=== PATIENT | male | born 1955 | race Caucasian/White ===

== ENCOUNTER 2016-03-31 19:16 | Inpatient (IN) | payer OTHER ==
[~2016-03-31] VITALS: Ht 180.3 cm; Wt 148.2 kg
[2016-03-31 19:56] LABS: BASOPHILS 0.1 % (0.0-2.0); EOSINOPHILS 0.5 % (0-7); HEMATOCRIT 29.7 % (42.0-54.0); HEMOGLOBIN 10.3 g/dL (13.5-17.5); IMMATURE GRANULOCYTES 1.4 % (0-5); LYMPHOCYTES 7.3 % (15-50); MCH 30.7 pg (26.0-34.0); MCHC 34.7 g/dL (31.0-37.0); MCV 88.4 fL (80.0-100.0); MEAN PLATELET VOLUME 8.3 fL (7.4-10.4); MONOCYTES 6.1 % (2-11); NEUTROPHILS 84.6 % (40-80); PLATELET COUNT 200 10x3/uL (130-400); RBC 3.36 10x6/uL (4.20-6.10); RDW 14.4 % (11.5-14.5); WBC 16.7 10x3/uL (4.8-10.8)
[2016-03-31 20:08] LABS: APTT 32.4 SECONDS (22.8-39.4); INR 1.33 (0.85-1.17); PROTIME 16.4 SECONDS (11.6-15.0)
[2016-03-31 20:14] LABS: ALBUMIN 2.1 g/dL (3.4-5.0); ANION GAP 16.7 mmol/L (8-16); BILIRUBIN - TOTAL 0.84 mg/dL (0.2-1.3); CALCIUM 9.5 mg/dL (8.5-10.1); CARBON DIOXIDE 22.3 mmol/L (21.0-32.0); CREATININE - SERUM 2.7 mg/dL (0.6-1.3); PROTEIN - SERUM 7.2 g/dL (6.4-8.2)
[2016-03-31 20:19] LABS: APPEARANCE CLOUDY (CLEAR); BILIRUBIN NEGATIVE (NEGATIVE); COLOR YELLOW (YELLOW); GLUCOSE NEGATIVE (NEGATIVE); KETONE NEGATIVE (NEGATIVE); LEUKOCYTE ESTERASE 2+ (NEGATIVE); NITRITE POSITIVE (NEGATIVE); PROTEIN 1+ mg/dL (NEGATIVE); SPECIFIC GRAVITY 1.015 (1.005-1.020); UROBILINOGEN NORMAL (NORMAL)
[2016-03-31 20:21] LABS: EPITHELIAL CELLS 0-5 /hpf (0-5)
[2016-03-31 20:22] LABS: BACTERIA MODERATE /hpf (NONE SEEN)
--- NOTE | 2016-04-01 01:14 | NUR ---
3850)REC'D FROM ER VIA STRETCHER.ALERT ORIENTED X3.CHIEF COMPLAINT GENERALIZED WEAKNESS AND ACHING ALL OVER X2 WEEKS.WILL CONTINUE TO MONITOR FOR ANY OTHER COMPLAINTS AND FOLLOW CURRENT PLAN OF CARE.
[2016-04-01] MEDS ORDERED: BAYER CHEWABLE81 MG PO (02:42)
[2016-04-01] MEDS ORDERED: PRINIVIL20 MG PO (02:43)
[2016-04-01] MEDS ORDERED: CELEXA20 MG PO (02:55)
[2016-04-01] MEDS ORDERED: BUPROPION XL300 MG PO (02:56)
[2016-04-01] MEDS ORDERED: NEXIUM40 MG PO (02:57)
[2016-04-01] MEDS ORDERED: NAPROSYN500 MG PO (02:59)
[2016-04-01] MEDS ORDERED: MECLIZINE HCL25 MG PO (03:00)
[2016-04-01] MEDS ORDERED: ULTRAM50 MG PO (03:05)
[2016-04-01] MEDS ORDERED: ZOCOR5 MG (03:10)
[2016-04-01] MEDS ORDERED: FLOMAX0.4 MG PO (03:12)
[2016-04-01] MEDS ORDERED: TRAVATAN Z2.5 ML EACH EYE (03:21)
[2016-04-01] MEDS ORDERED: COMBIGAN OPHT DR5 ML (03:27)
[2016-04-01] MEDS ORDERED: FISH OIL 1,0001 CA1 (04:01)
[2016-04-01] MEDS ORDERED: MILK THISTLE140 MG (04:05)
[2016-04-01] MEDS ORDERED: VITAMIN C250 MG (04:06)
[2016-04-01] MEDS ORDERED: VITAMIN E400 UNI2 (04:07)
[2016-04-01] MEDS ORDERED: GLUCOSAMINE & C1 CAP (04:07)
[2016-04-01] MEDS ORDERED: VITAMIN B COMPL1 TAB (04:17)
[2016-04-01] MEDS ORDERED: VITAMIN C250 MG PO (04:20)
--- NOTE | 2016-04-01 04:20 | NUR ---
PATIENT RESTING IN SEMI-FOWLERS POSITION. EMILIANO CHECKING VITALS. PATIENT DENIES NEEEDS AT THIS TIME. BED IN LOWEST POSITION AND CALL LIGHT WITHIN REACH.
[2016-04-01 05:02] VITALS: BP 124/61; BMI 45.4
[2016-04-01 05:10] LABS: BASOPHILS 0.1 % (0.0-2.0); EOSINOPHILS 0.7 % (0-7); HEMATOCRIT 28.8 % (42.0-54.0); IMMATURE GRANULOCYTES 1.4 % (0-5); LYMPHOCYTES 8.1 % (15-50); MCH 30.9 pg (26.0-34.0); MCHC 34.7 g/dL (31.0-37.0); MCV 88.9 fL (80.0-100.0); MEAN PLATELET VOLUME 8.2 fL (7.4-10.4); MONOCYTES 7.7 % (2-11); PLATELET COUNT 209 10x3/uL (130-400); RBC 3.24 10x6/uL (4.20-6.10); RDW 14.7 % (11.5-14.5); WBC 15.2 10x3/uL (4.8-10.8)
[2016-04-01 05:29] LABS: ANION GAP 17.4 mmol/L (8-16); CARBON DIOXIDE 20.2 mmol/L (21.0-32.0); CREATININE - SERUM 2.6 mg/dL (0.6-1.3); POTASSIUM - SERUM 4.6 mmol/L (3.5-5.1)
[2016-04-01 06:08] VITALS: BP 127/65
--- NOTE | 2016-04-01 07:00 | NUR ---
PT REC'D FROM [facility]. RESTING IN BED WITH EYES CLOSED. RESP EVEN AND UNLABORED. NO SIGNS OF DISTRESS. BED LOW, CALL LIGHT IN REACH, CPOC.
[2016-04-01 08:43] VITALS: BP 134/64
--- NOTE | 2016-04-01 12:00 | NUR ---
MEDS PASSED AT THIS TIME. RESTING IN HIGH FOWLERS WATCHING TV. BED LOW, CALL LIGHT IN REACH, DENIES NEEDS.
[2016-04-01 12:30] VITALS: BP 145/61
--- NOTE | 2016-04-01 15:30 | NUR ---
IN ROOM AT THIS TIME. PROVIDED [facility]. COPY PLACED ON CHART.
--- NOTE | 2016-04-01 15:40 | NUR ---
PATIENT LAYING IN THE BED, HOB 40 DEGREES. OXYGEN ON AT 2L/MIN BUT NASAL CANNULA ON THE FLOOR. STATED PATIENT JUST GOT BACK TO BED FROM THE BATHROOM. CLEANED NASAL CANNULA WITH ALCOHOL AND PUT NASAL CANNULA ON. PATIENT'S REQUESTED HELP LOOKING FOR EYE DROPS THAT SHE LOST ASSISTED LOOKING AROUND THE ROOM. FOUND THE EYE DROPS. BOTH DENY FURTHER NEEDS AT THIS TIME. BED IN LOWEST POSITION, CALL LIGHT IN REACH. BED RIALS UP X'S 2.
[2016-04-01 16:43] VITALS: BP 147/73
[2016-04-01 21:35] VITALS: BP 149/73
[2016-04-02 01:00] VITALS: BP 133/64
--- NOTE | 2016-04-02 02:00 | NUR ---
PT IN BED WITH NO NEEDS. RIGHT HAND IV PATENT AND FLUIDS RUNNING PER ORDER. PT WITH DIMINISHED LUNG SOUNDS. SIDE RAILS ARE UP X 2. BED IS LOW. CALL LIGHT IN REACH.
[2016-04-02 04:00] VITALS: BP 146/68
[2016-04-02 06:11] LABS: % SATURATION 14 % (15-55); IRON 31 ug/dl (35-150); TOTAL IRON BIND CAPACITY 207 ug/dl (260-445); UNSAT IRON BIND CAPACITY 176 ug/dl (150-375)
--- NOTE | 2016-04-02 08:00 | NUR ---
PATIENT IS AWAKE AND ALERT. HIS LUNG SOUNDS ARE DIMINISHED IN LOWER 1/2 ROMÁN. QUESTIONED HIS SKIN COLOR AND HE STATES THAT HE ATTENDS A TANNING SALON FREQUENTLY. HE IS ON ROOM AIR. IVF INFUSING PER ORDERS. TRACE EDEMA NOTED TO BLE.
[2016-04-02 08:29] VITALS: BP 138/71
--- NOTE | 2016-04-02 11:00 | NUR ---
SPOKE WITH QUINTON REGARDING CURRENT POC AFTER GAVE A SECURITY CODE THAT SHE WOULD KNOW. FORWARDED CALL TO CASE MANAGEMENT TO DISCUSS PAYMENT/ [facility] STATUS.
--- NOTE | 2016-04-02 11:10 | NUR ---
Patient Name: BRITTANIE SANCHEZ Admission Status: ER Accout number: [id number] Admission Date: 03-31-2016 : 1955 Admission Diagnosis: Attending: VALARIE Current LOS: 2 Anticipated DC Date: 04-05-2016 Planned Disposition: Home Primary Insurance: [employer] Discharge Planning Comments: CM MET WITH PATIENT REGARDING D/C NEEDS AND PLANS. PATIENT STATED HE LIVES WITH HIS QUINTON AND SHE WILL PICK HIM UP AT DISCHARGE. PATIENT STATED HE HAS NO STEPS OR STAIRS AT HIS HOME. PATIENT STATED HE IS INDEPENDENT WITH HIS CARE AND HAS A WALKER AND CANE AT HOME IF NEEDED. PATIENTS PCP IS DR. GRACIA AT [facility] HERE IN [place] AND PHARMACY WILL BE [place] [facility] (USUALLY SEND OFF WITH [facility]). CM CALLED THE [facility] IN [place] FOR A BED AT 10:30 AND [place] (WITH [place] ) STATED THERE WERE NO BEDS AVAILABLE AT THAT TIME. CM WILL CALL [facility] TOMORROW AND CHECK ON BED STATUS. CM WILL CONTINUE TO FOLLOW PATIENT WITH D/C NEEDS AND PLANS. PCP DR. GRACIA AT [facility] ([facility]) [phone] (MAIL ORDER [facility]) QUINTON () [phone] Multiple Needle Stitcher: Roxana Lee Is the patient Alert and Oriented? Yes 0 * How many steps to enter\exit or inside your home? 0 0 * PCP DR. GRACIA AT [facility] IN [place] 0 * [facility] [phone] * Preadmission Environment Home with Family 0 * ADLs Independent 0 * Equipment Cane Walker 0 * List name and contact numbers for known caregivers / representatives who currently or will assist patient after discharge: QUINTON [phone] * Community resources currently utilized None 0 * Additional services required to return to the preadmission environment? Yes 0 * Can the patient safely return to the preadmission environment? Yes 0 * Has this patient been hospitalized within the prior 30 days at any hospital? No 0 Grand Total: 0
--- NOTE | 2016-04-02 11:30 | NUR ---
PATIENT RESTING QUIETLY WITH HOB FLAT. SLEEP APNEA OF 3 SEC NOTED. ENCOURAGED HIM TO RAISE HOB.
[2016-04-02 12:29] VITALS: BP 153/66
[2016-04-02 13:11] VITALS: Ht 180.3 cm; Wt 148.2 kg
--- NOTE | 2016-04-02 14:15 | HP ---
PATIENT: BRITTANIE SANCHEZ MEDICAL RECORD: [id number] ACCOUNT: [id number] LOCATION:D.MS [id number] : [birth year] ADMISSION DATE: 03/31/16 HISTORY AND PHYSICAL EXAMINATION DATE OF ADMISSION: 03/31/2016 CHIEF COMPLAINT: Cough, congestion and body aches. HISTORY OF PRESENT ILLNESS: This is a 60-year-old white male, who lives in [place]. He states he has lived in [place] for less than a year and has recently started seeing somebody in the [place] clinic and has no local PCP. The story that he has had 2-week history of cough, congestion and some body aches. He has increased weakness, reportedly some night sweats. It has been written that he stopped both smoking and drinking on March 21, which would be been 11 or 12 days ago. He states he drinks a couple of beers a day, has been having urinary frequency, urgency and dysuria as well. In the ER, his white count was 15,000. His hemoglobin was 10.6. His BUN and creatinine were 55 and 2.6 respectively. Lipase was elevated at 717. INR was elevated at 1.33. Liver enzymes were elevated and albumin was low at 2.1. Urinalysis showed urinary tract infection and it was felt by the ER doctor that he has some pneumonia going on. He is admitted for further care. PAST MEDICAL HISTORY: Depression, reportedly sleep apnea, BPH, reflux, hypertension, hyperlipidemia, glaucoma, degenerative arthritis and chronic back pain. PAST SURGICAL HISTORY: Back surgery times 2. He has had some sort of knee surgeries years ago from injuries. He states he is [id number] and knees knee replacement. DRUG ALLERGIES: None known. HOME MEDICATIONS: Aspirin 81 mg a day, meclizine 25 mg 3 times a day, tramadol 50 mg p.r.n. pain, citalopram 20 mg once a day, Wellbutrin-XL 300 once a day, simvastatin, uncertain dose once a day, lisinopril 20 mg once a day, tamsulosin 0.4 mg once a day, Nexium 40 mg once a day, naproxen 500 mg at bedtime, Travatan 0.004% eyedrops daily and Combigan 0.2-0.5 twice a day. SOCIAL HISTORY: He is and is disabled plant electrician. HABITS: He states he just quit smoking and drinking on 03/21/2016. FAMILY HISTORY: Father at 83 of some sort of Parkinson's tremor. Mother is alive at 86. She has diabetes. REVIEW OF SYSTEMS: GENERAL: No major weight changes. HEENT: Unremarkable. CARDIAC: No history of coronary artery disease or congestive heart failure. RESPIRATORY: Denies history of emphysema, asthma or COPD. GASTROINTESTINAL: Has some reflux problems. GENITOURINARY: He has BPH. MUSCULOSKELETAL: Has chronic back pain and knee pain. NEUROLOGIC: No seizure disorder. No memory loss. HISTORY AND PHYSICAL [id number] BRITTANIE SANCHEZ PSYCHIATRIC: He has depression. PHYSICAL EXAMINATION: VITAL SIGNS: In the ER, his temperature was 100.3. Currently, he is 98.4, pulse 70, respirations 21, blood pressure 134/64 and O2 sat 96% on room air. GENERAL: He does not appear in acute distress. SKIN: Warm and dry. HEENT: Grossly within normal limits. NECK: Supple. No JVD or bruit. HEART: Regular rate and rhythm without murmur. LUNGS: Fairly clear, few rales in the bases bilaterally. ABDOMEN: Obese and soft. Mild generalized tenderness. No guarding, no rebound, no mass. Bowel sounds are active. EXTREMITIES: No pitting edema. LABORATORY DATA: CBC with a white count 15,200, hemoglobin 10.6 and hematocrit 28.8. Basic metabolic panel is all okay except BUN of 55 and creatinine 2.6. Lipase is 717. AST 80 and ALT 105. Alkaline phosphatase 616. Albumin 2.1. INR is elevated at 1.33. Urinalysis: Yellow, cloudy with 1+ protein, 2+ blood, positive nitrite, 2+ leukocyte esterase, 10-25 red blood cells, 10-25 white blood cells, no epithelial cells and he has moderate bacteria. Influenza A and B tests were negative. IMAGING: Chest x-ray read by radiologist as mild cardiomegaly and atelectasis and vascular congestion. ASSESSMENT: 1. Acute bacterial pneumonia. 2. Urinary tract infection. 3. Renal insufficiency, acute versus chronic? His baseline is unknown. 4. Normocytic anemia. 5. Pancreatitis with elevated lipase. PLAN: Start on antibiotics, given IV fluids. He has had blood and urine cultures. We will follow up results of those. We will get an anemia workup. Ultrasound of the abdomen for his elevated liver enzymes and pancreatic enzyme, give him IV Protonix for stress ulcer prevention and subcutaneous Lovenox. Other tests or procedures as warranted. TRANSINT:[id number] Voice Confirmation ID: [id number] DOCUMENT ID: [id number] LEELEE CLANCY MD at 1415 CC: [id number] DICTATION DATE: 04/01/16 1108 TRAFFIC OFFICER: 04/01/16 1140 ADM IN [place] [id number] [place] [id number]
--- NOTE | 2016-04-02 15:25 | NUR ---
PATIENT AWAKE, HOB UP 30 DEGREES, WITHOUT NEEDS NOTED. IVF INFUSING PER ORDERS.
[2016-04-02 16:57] VITALS: BP 152/66
--- NOTE | 2016-04-02 17:45 | NUR ---
PATIENT RESTING IN BED, LIGHTS OUT, WATCHING TV. DENIES NEEDS. IVF INFUSING PER ORDERS.
[2016-04-02 19:00] VITALS: BP 142/74
--- NOTE | 2016-04-02 19:30 | NUR ---
PATIENT RESTING IN BED. RETAPED PATIENT'S IV AND BROUGHT HIM SPRITE PER HIS REQUEST. PATIENT DENIES OTHER NEEDS AT THIS TIME. BED IN LOWEST POSITION AND CALL LIGHT WITHIN REACH.
[2016-04-03] VITALS: BP 140/69
[2016-04-03 04:00] VITALS: BP 144/68
[2016-04-03 06:40] LABS: BASOPHILS 0.1 % (0.0-2.0); EOSINOPHILS 0.6 % (0-7); HEMATOCRIT 28.2 % (42.0-54.0); HEMOGLOBIN 9.5 g/dL (13.5-17.5); IMMATURE GRANULOCYTES 0.9 % (0-5); LYMPHOCYTES 10.2 % (15-50); MCH 30.6 pg (26.0-34.0); MCHC 33.7 g/dL (31.0-37.0); MEAN PLATELET VOLUME 8.4 fL (7.4-10.4); MONOCYTES 7.1 % (2-11); NEUTROPHILS 81.1 % (40-80); PLATELET COUNT 244 10x3/uL (130-400); RDW 14.9 % (11.5-14.5); WBC 13.9 10x3/uL (4.8-10.8)
[2016-04-03 07:04] LABS: ALBUMIN 1.9 g/dL (3.4-5.0); ANION GAP 14.8 mmol/L (8-16); BILIRUBIN - TOTAL 0.7 mg/dL (0.2-1.3); CALCIUM 8.8 mg/dL (8.5-10.1); CREATININE - SERUM 2.2 mg/dL (0.6-1.3); POTASSIUM - SERUM 4.8 mmol/L (3.5-5.1); PROTEIN - SERUM 6.4 g/dL (6.4-8.2)
[2016-04-03 08:05] VITALS: BP 143/72
[2016-04-03 10:19] LABS: FOLATE (FOLIC ACID) - SERUM 18.6 ng/mL (>3.0)
[2016-04-03 11:51] VITALS: BP 140/46
[2016-04-03 15:43] VITALS: BP 135/66
--- NOTE | 2016-04-03 18:49 | NUR ---
PATIENT IS RESTING QUIELTY IN HIS BED WITHOUT COMPLAINTS OR VOICED NEEDS.
--- NOTE | 2016-04-03 19:47 | NUR ---
PATIENT RESTING ON SIDE WITH EYES CLOSED. NO VISIBLE SIGNS OF DISTRESS. PATIENT'S BED IN LOWEST POSITION AND CALL LIGHT WITHIN REACH.
[2016-04-03 21:24] VITALS: BP 153/67
[2016-04-04 00:46] VITALS: BP 175/59
[2016-04-04 05:33] VITALS: BP 136/57
[2016-04-04 06:37] LABS: ALBUMIN 1.9 g/dL (3.4-5.0); ANION GAP 14.9 mmol/L (8-16); BILIRUBIN - TOTAL 0.6 mg/dL (0.2-1.3); CARBON DIOXIDE 21.6 mmol/L (21.0-32.0); POTASSIUM - SERUM 4.5 mmol/L (3.5-5.1); PROTEIN - SERUM 7.1 g/dL (6.4-8.2)
--- NOTE | 2016-04-04 08:36 | NUR ---
EDVIN SPOKE WITH ONEYDA WITH [facility] IN [place] REGARDING PATIENT. DR. CLANCY HAD STATED PATIENT WOULD PROBABLY D/C TOMORROW AND CM RELAYED THAT TO ONEYDA AT THE [facility]. DR. BLAND NUMBER WAS GIVEN TO ONEYDA IN CASE OF BED AVAILABILITY. ONEYDA STATED THEY WOULD PROBABLY NOT CALL FOR PATIENT IF D/C WAS TOMORROW. CM WILL CALL IN AM TO GIVE UPDATE TO [facility].
[2016-04-04 08:48] VITALS: BP 128/63
[2016-04-04 11:17] VITALS: BP 120/55
--- NOTE | 2016-04-04 12:16 | CN ---
PATIENT NAME:BRITTANIE SANCHEZ MEDICAL RECORD: [id number] : 51 LOCATION:D.MS [id number] ADMIT DATE: 03/31/16 ACCOUNT: [id number] CONSULTING PHYSICIAN: RENATO ARNDT MD REFERRING PHYSICIAN: JAVED CLANCY MD DATE OF CONSULTATION: 04/03/2016 REFERRING PHYSICIAN: Dr. Javed Clancy. HISTORY OF PRESENT ILLNESS: The patient is a 61-year-old white male with a history of hypertension, who was basically admitted to the hospital with a 2-3 week history of mild confusion, mild anemia and renal insufficiency. He has also had 2 weeks of cough, congestion, some body aches. In the ER, he was found to have a white count of 15,000 and hematocrit of 28. His BUN is 55 with a creatinine 2.6. Albumin is low at 2.1. He has been hydrated and placed on antibiotics. His ____ remaining are around 2-1/2. I was asked to see the patient to evaluate his mildly elevated liver enzymes. The patient denies any abdominal pain, hematochezia or melena, or past history of liver disease. Apparently, he had normal liver enzymes done at the [facility] a few months ago. He denies taking any medications. He is on a statin, Zocor. He does have a history of social alcohol use. PAST MEDICAL HISTORY: As above. PAST SURGICAL HISTORY: Essentially negative. SOCIAL HISTORY: The patient is a long time smoker. Drinks alcohol on social basis. FAMILY HISTORY: Negative for GI diseases. HOME MEDICATIONS: Include aspirin, Prinivil, Celexa, Wellbutrin, Nexium, Naprosyn, meclizine, tramadol, Zocor, Flomax, Travatan eyedrops. REVIEW OF SYSTEMS: Noncontributory other than per HPI. PHYSICAL EXAMINATION: GENERAL: Reveals a middle-aged white male, in no acute distress. He has somewhat of a flat affect. VITAL SIGNS: Stable. He is afebrile. CHEST: Clear. HEART: Regular rate and rhythm. ABDOMEN: Soft, nontender. EXTREMITIES: No edema. LABORATORY DATA: At present reveals a white count of 14,000, hematocrit 28, MCV of 91, retic count of 0.6. He has a mild left shift. INR is 1.3. Electrolytes are normal, BUN 36, creatinine 2.2. Iron saturation is normal at 14%, ferritin level is 520. AST 61, ALT 100, total bilirubin 0.7, alkaline phosphatase 537. Albumin 1.9. B12 and folate are pending. Lipase on admission was 700. UA reveals positive nitrites, bilirubin, white cells and red cells. Renal ultrasound reveals a cyst of the left kidney of 3.6 cm, but otherwise negative. An ultrasound of the gallbladder reveals fatty liver, but otherwise normal. Chest x-ray was normal. CONSULT REPORT [id number] BRITTANIE SANCHEZ IMPRESSION: Mildly elevated liver enzymes associated with mild normocytic anemia and renal insufficiency as well as mental status changes of unclear etiology. This could just be infectious in origin. He has had already been placed on Levaquin. I doubt his anemia is GI related. He denies any hematochezia or melena or any abdominal pain. However, he does take occasional Naprosyn for what I can tell. Stool guaiacs are pending. His iron saturation is normal at 14%. His elevated liver enzymes are of unclear etiology as well. He has a normal ultrasound and fatty liver. He is not a heavy alcohol drinker from what I can tell. He is on a statin, but apparently [facility] I do not have a documented as of yet. RECOMMENDATION: 1. [facility] "liver lab." 2. ____. 3. Follow up stool guaiac. 4. Further recommendations to follow. 5. Also follow liver enzymes daily. Hopefully, we can avoid a liver biopsy. 6. Agree with empiric antibiotics for now. TRANSINT:[id number] Voice Confirmation ID: [id number] DOCUMENT ID: [id number] RENATO ARNDT MD at 1216 CC: JAVED CLANCY MD [id number] DICTATION DATE: 04/03/16 1750 EVIDENCE TECHNICIAN: 04/03/16 2340 ADM IN [facility] [address] [place] [address]
--- NOTE | 2016-04-04 13:55 | NUR ---
NUTRITION MONITORING & EVAL CHART REVIEWED. PT CURRENTLY SLEEPING. TOLERATING AHA DIET ~75% INTAKE RECENT MEALS. RD FOLLOWING
[2016-04-04 14:49] VITALS: BP 125/61
--- NOTE | 2016-04-04 20:45 | NUR ---
AWAKE,ALERT.ORIENTED,SKIN WARM DRY RESP EVEN AND UNALBORED. NO COMPLAINTS VOICED. POSITIONS SELF IN BED. SL TO RIGHT HAND INTACT WITHOUT REDNESS OR EDEMA. CL IN REACH.
[2016-04-04 21:00] VITALS: BP 144/69
--- NOTE | 2016-04-05 00:06 | NUR ---
RESTING WITH EYES CLOSED, RESP WITH EASE, NO DISTRESS NOTED, SAFETY MEASURES IN PLACE, CL IN REACH
[2016-04-05 01:30] VITALS: BP 131/68
--- NOTE | 2016-04-05 01:57 | NUR ---
EYES CLOSED RESP EVEN AND UNALBORED. CL IN REACH.
[2016-04-05 05:00] VITALS: BP 147/68
--- NOTE | 2016-04-05 05:51 | NUR ---
NO CHANGE IN ASSESSMENT. CL IN REACH
[2016-04-05 05:55] LABS: ANION GAP 13.3 mmol/L (8-16); BILIRUBIN - TOTAL 0.61 mg/dL (0.2-1.3); CALCIUM 9.3 mg/dL (8.5-10.1); POTASSIUM - SERUM 4.3 mmol/L (3.5-5.1)
--- NOTE | 2016-04-05 07:00 | NUR ---
REPORT RECIEVED ASSUMED CARE. PATIENT IN BED WITH IV INTACT. NO COMPLAINTS. CALL LIGHT WITHIN REACH.
[2016-04-05 08:00] VITALS: BP 137/47
[2016-04-05 08:20] LABS: ALPHA FETOPROTEIN -(TUMOR MRK) 2.3 ng/mL (0.0-8.3)
[2016-04-05] MEDS ORDERED: LEVAQUIN500 MG PO (08:28)
--- NOTE | 2016-04-05 08:30 | NUR ---
PATIENT RECIEVED DC INSTRUCTIONS. VERBALIZED UNDERSTANDING. NO QUESTIONS AT THIS TIME. EXPLAINED TO WILL CALL ORDER CLERK SMITH AT PHARMACY. IV REMOVED WITH CATH TIP INTACT. AWAITING FAMILY FOR TRANSPORTATION.
[2016-04-05 08:55] LABS: CREATININE - URINE 29.2 mg/dL (30-125); POTASSIUM - URINE 18.2 MMOL/L (12.0-62.0); PROTEIN - URINE 30.9 mg/dL (0.0-11.9)
[2016-04-05 09:18] LABS: ANA REFLEX - DIRECT Negative (Negative)
[2016-04-05 09:47] LABS: APPEARANCE HAZY (CLEAR); BILIRUBIN NEGATIVE (NEGATIVE); COLOR YELLOW (YELLOW); GLUCOSE NEGATIVE (NEGATIVE); KETONE NEGATIVE (NEGATIVE); LEUKOCYTE ESTERASE 1+ (NEGATIVE); NITRITE NEGATIVE (NEGATIVE); PROTEIN 1+ mg/dL (NEGATIVE); UROBILINOGEN NORMAL (NORMAL)
[2016-04-05 09:51] LABS: BACTERIA MODERATE /hpf (NONE SEEN); EPITHELIAL CELLS 0-5 /hpf (0-5); RED CELLS - URINE 25-50 /hpf (0-5); WHITE CELLS - URINE 25-50 /hpf (0-5)
--- NOTE | 2016-04-05 10:16 | NUR ---
CM REASSESSMENT NOTE: PATIENT IS DISCHARGING TODAY- IS DRIVING HIM HOME. PATIENT DENIES HOME HEALTH OR ANY OTHER NEEDS.
[2016-04-05 10:20] LABS: HEPATITIS C ANTIBODY <0.1 (0.0-0.9)
[2016-04-06 13:17] LABS: SMOOTH MUSCLE ABS (ACTIN) 54 Units (0-19)
== END 2016-04-05 11:06 | disposition home or self-care (01) | DRG 682 ==
LOC: D.ER 19:16 → D.MS 22:09
PROVIDERS: Emergency Medicine; Internal Medicine; Internal Medicine Gastroenterology; ADMIT Family Medicine
DX: N17.9 Acute kidney failure, unspecified (principal); K85.90 Acute pancreatitis without necrosis or infection, unspecified; G93.49 Other encephalopathy; N39.0 Urinary tract infection, site not specified; Z68.41 Body mass index [BMI] 40.0-44.9, adult; D63.1 Anemia in chronic kidney disease; I10 Essential (primary) hypertension; E66.01 Morbid (severe) obesity due to excess calories; F17.200 Nicotine dependence, unspecified, uncomplicated; B96.20 Unspecified Escherichia coli [E. coli] as the cause of diseases classified elsewhere; D64.9 Anemia, unspecified